=== PATIENT | female | born 1945 | race Caucasian/White ===

== ENCOUNTER → 2017-12-14 | Outpatient (CLI) | payer OTHER ==
[~2017-12-14] MED LIST: ADVAIR 5001 DISK W/1; PROAIR HFA8.5 GM
== END | disposition home or self-care (01) ==
LOC: LAB 13:47
DX: J11.1 Influenza due to unidentified influenza virus with other respiratory manifestations (principal)

== ENCOUNTER 2021-04-21 10:02 | Day surgery (SDC) | payer OTHER | END 2021-04-21 16:10 | disposition home or self-care (01) | LOC: AMB-ENDOS 10:02 | PROVIDERS: ATTEND Surgery | DX: K62.89 Other specified diseases of anus and rectum (principal); K64.4 Residual hemorrhoidal skin tags; Z20.822 Contact with and (suspected) exposure to COVID-19 ==

== ENCOUNTER 2024-10-03 09:10 | Emergency (ER) | payer OTHER ==
[~2024-10-03] VITALS: Ht 142.2 cm; Wt 51.3 kg
[2024-10-03] MEDS ORDERED: SYNTHROID50 MCG (10:04)
[2024-10-03] MEDS ORDERED: BENZONATATE 100 MG CAPSULE PO ONE (10:30)
[2024-10-03] MEDS ORDERED: IPRATROPIUM/ALBUTEROL SULFATE 3 ML AMPUL.NEB IH ONE (10:30)
[2024-10-03 11:07] LABS: HEMATOCRIT 32.1 % (36.0-45.00); HEMOGLOBIN 10.3 g/dL (12.0-15.00); MEAN CELL VOLUME 82.5 fL (80.00-100.00); MEAN CORPUSCULAR HEMOGLOBIN 26.4 pg (27.00-32.0); MEAN CORPUSCULAR HGB CONC 31.9 g/dl (32.0-36.0); PLATELET COUNT 238 K/uL (150-450); RED CELL DISTRIBUTION WIDTH 14.9 % (11.5-14.5)
[2024-10-03 11:30] LABS: CALCIUM 8.8 mg/dL (8.5-10.1); CREATININE SERUM 1.98 mg/dL (0.55-1.02); GFR 24.44; POTASSIUM 4.67 mEq/L (3.5-5.1)
[2024-10-03] MEDS ORDERED: SINGULAIR10 MG PO (12:01)
[2024-10-03] MEDS ORDERED: NASAL MIST126 ML NASAL (12:01)
[2024-10-03] MEDS ORDERED: AMOX1TAB5 PO (12:01)
[2024-10-03] MEDS ORDERED: IPRAT-ALBUT 0.5-3 ML IH (12:01)
[2024-10-03] MEDS ORDERED: BENZONATATE100 MG PO (12:01)
== END 2024-10-03 13:09 | disposition home or self-care (01) ==
LOC: ER 09:12
PROVIDERS: General Practice
DX: B34.9 Viral infection, unspecified (principal); J45.909 Unspecified asthma, uncomplicated; Z88.8 Allergy status to other drugs, medicaments and biological substances; E03.8 Other specified hypothyroidism; I10 Essential (primary) hypertension; M32.8 Other forms of systemic lupus erythematosus; N28.9 Disorder of kidney and ureter, unspecified; G47.33 Obstructive sleep apnea (adult) (pediatric); Z20.822 Contact with and (suspected) exposure to COVID-19